=== PATIENT | female | born 2000 | race Hispanic/Latino ===

== ENCOUNTER 2024-12-06 19:02 | Emergency (ER) | payer SELFPAY ==
[~2024-12-06] VITALS: Ht 157.5 cm; Wt 61.2 kg
[2024-12-06 19:25] VITALS: TEMP 98.1
[2024-12-06 20:00] LABS: BASOPHILS % 0.5 % (0.0-1.0); EOSINOPHILS % 0.8 % (0.0-6.0); LYMPHOCYTES % 21.7 % (18.0-39.1); MONOCYTES % 6.6 % (4.4-11.3); NEUTROPHILS % 70.2 % (38.7-80.0); RED CELL DISTRIBUTION WIDTH 13.1 % (11.7-14.4)
[2024-12-06 20:16] LABS: EST GLOMERULAR FILTRATION RATE 114.0 ML/MIN (>=60)
[2024-12-06] MEDS: SODIUM CHLORIDE 0.9% 1000ML 1,000 ML IV STA (20:36)
[2024-12-06 20:43] VITALS: RESP 21
[2024-12-06] MEDS: ONDANSETRON HCL INJ 2MG/ML 2ML 2 MG/ML VIAL IV PRN (21:07)
[2024-12-06 21:48] LABS: LEUKOCYTE ESTERASE ,URINE NEGATIVE (NEGATIVE); PROTEIN,URINE DIPSTICK NEGATIVE (NEGATIVE); URINE UROBILINOGEN 0.2 mg/dL (0.2 - 1)
[2024-12-06 21:58] LABS: EPITHELIAL CELLS,URINE FEW /LPF; WBC,URINE (MAN) 0-5 /HPF (0-5)
[2024-12-07] VITALS: PULSE 66
[2024-12-07] MEDS ORDERED: DICYCLOMINE HCL20 MG PO (00:05)
[2024-12-07] MEDS ORDERED: ONDANSETRON ODT4 MG PO (00:05)
[2024-12-07 00:28] VITALS: BP 111/71; PULSE 66; O2SAT 99
[2024-12-07] MEDS ORDERED: IOPAMIDOL 370 MG/ML 100 ML INFUS..BTL INJ ONE (02:12)
== END 2024-12-07 00:28 | disposition home or self-care (01) ==
LOC: ER 19:33
DX: R10.32 Left lower quadrant pain (principal); R11.2 Nausea with vomiting, unspecified
CPT/HCPCS: 36415; 74177; 80053; 81001; 83690; 84702; 85025; 99284; J2405; J7030; Q9967